=== PATIENT | male | born 1965 | race Caucasian/White ===

== ENCOUNTER 2019-05-04 16:33 | Observation (INO) ==
--- NOTE | 2019-05-04 17:58 | Emergency Department Note ---
Disposition Clinical Impression: Multiple sclerosis exacerbation Disposition: Admitted As Inpatient Condition: Fair Referrals: NONE,PCP [Primary Care Provider] - Forms: ED Satisfaction Letter, Work/School Release Time of Disposition: 20:23 General Adult HPI - General Chief complaint: ED General Medical Stated complaint: MS Flareup Time Seen by Provider: 05/04/19 17:06 Source: patient Limitations: no limitations - History of Present Illness HPI Narrative: Patient is a 53-year-old male complains of possible MS exacerbation. The patient is followed by Dr. Esposito here in the area. The patient states the past 3 or 4 days he has been extrinsic and some right-sided weakness, numbness. The patient states that he has had troubles with his balance as well. He does complain of some dizzy episodes as well. He denies any current headache, chest pain, palpitations, chest pain or abdominal pain. Patient states he has had some constipation issues. Patient states that his right side feels somewhat weak and less sensitive than his left. Patient denies any fevers or chills. The patient denies any rash. Patient states otherwise nothing makes symptoms better or worse. Pain Scale: 0 - Related Data Home Medications Medication Instructions Recorded Confirmed Albuterol Sulfate [Proair Hfa] 1 - 2 puff IH Q6H PRN 11/03/16 11/03/16 Allopurinol [Zyloprim] 300 mg PO DAILY 11/03/16 11/03/16 Aripiprazole [Abilify] 10 mg PO DAILY 11/03/16 11/03/16 Baclofen [Lioresal] 10 mg PO BID PRN 11/03/16 11/03/16 Cholecalciferol (Vitamin D3) 5,000 units PO DAILY 11/03/16 11/03/16 [Vitamin D3] DULoxetine [Cymbalta] 30 mg PO BID 11/03/16 11/03/16 Furosemide [Lasix] 40 mg PO BID PRN 11/03/16 11/03/16 Gabapentin [Neurontin] 600 mg PO TID 11/03/16 11/03/16 Glatiramer Acetate [Copaxone] 40 mg SQ QMWF 11/03/16 11/03/16 Indomethacin 75 mg PO DAILY 11/03/16 11/03/16 Levothyroxine [Synthroid] 50 mcg PO DAILY 11/03/16 11/03/16 Tramadol HCl [Ultram] 50 mg PO Q4-6H PRN 11/03/16 11/03/16 Previous Rx's Medication Instructions Recorded metFORMIN [Glucophage] 500 mg PO BIDWM #30 tablet 11/04/16 predniSONE [Prednisone] 10 mg PO TAPER #10 tab.ds.pk 11/04/16 Allergies Allergy/AdvReac Type Severity Reaction Status Date / Time Iodinated Contrast- Oral and Allergy Itching Verified 11/02/16 14:00 IV Dye [Iodinated Contrast Media - Oral and] Review of Systems: As mentioned per history of present illness and as follows. Constitutional: Negative for chills or fever HENT: Negative for sore throat. Eyes: Negative for visual disturbance Respiratory: Negative for shortness of breath. Cardiovascular: Negative for palpitations. Gastrointestinal: Negative for abdominal pain Genitourinary: Negative for dysuria Musculoskeletal: Negative for back pain. Skin: Negative for rash. Neurological: Positive for focal weakness Psychiatric/Behavioral: Negative for depression Past Medical History - Past Medical History Medical history: Reports: CHF, other Surgical history: Reports: herniorrhaphy (Umbilical hernia repair) Psychiatric history: Reports: no psych history - Social History Smoking Status: Never smoker Smokeless Tobacco Status: No Alcohol use: Reports: occasionally Drug use: Reports: none Physical Exam PHYSICAL EXAM Constitutional: Well developed, Well nourished, morbidly obese No acute distress, Non-toxic appearance. HENT: Normocephalic, Atraumatic, Bilateral external ears normal, Oropharynx moist, No oral exudates, Nose normal. Neck- Normal range of motion, No tenderness, Supple. Eyes: PERRL, EOMI, Conjunctiva normal,. Cardiovascular: Regular rate and rhythm without clicks, rubs, gallops or murmurs. Respiratory: Normal breath sounds, No respiratory distress, No wheezing, rhonchi, or crackles. GI: Soft, nontender, no evidence of guarding or peritoneal signs. Bowel sounds are active. Musculoskeletal: Good range of motion in all major joints. No tenderness to palpation or major deformities noted. Patient does have overall equal strength noted on examination may be slightly decrease of the right upper extremity compared to the left. Integument: Warm, Dry, No erythema, No rash. No edema. Dressing is in place a left lower extremity around the ankle. Neurologic: Alert & oriented x 3, patient is able to feel touch to the right and left-sided the face however somewhat diminished in the right, No focal deficits noted. Patient does appear to have a minimal right-sided facial droop on examination - General Limitations: no limitations General appearance: alert, in no apparent distress Course Vital Signs Temperature 98.3 F 05/04/19 16:39 Pulse Rate 93 05/04/19 16:39 Respiratory Rate 18 05/04/19 16:39 Blood Pressure 132/79 05/04/19 16:39 O2 Sat by Pulse Oximetry 92 05/04/19 16:39 Temperature 98.3 F 05/04/19 16:39 Pulse Rate 83 05/04/19 20:07 Respiratory Rate 18 05/04/19 20:07 Blood Pressure 142/68 05/04/19 20:07 O2 Sat by Pulse Oximetry 95 05/04/19 20:07 Oxygen Delivery Oxygen Delivery Room Air Medical Decision Making - MDM Narrative Medical decision making narrative: EKG was obtained that shows sinus rhythm at 86 beats a minute, no evidence of ST elevation or depression, VT and QT intervals are within normal limits. Interpreted by myself. Patient at this point in time did have a negative workup including negative CT, negative chest x-ray, unremarkable laboratory workup. The patient possibly could be having an MS exacerbation. Cannot entirely rule out a CVA however the symptoms are 3-4 days old, the patient is not a TPA candidate secondary to the length of time this is not ongoing. Patient did have a slight Medrol ordered here in the emergency room. The p atient. Case discussed with neurology as well. The patient is going to be admitted, case was discussed in full detail with the hospitalist and the patient will be admitted to the floor in stable condition. Patient appears to have MS exacerbation. Final impression 1. Multiple sclerosis exacerbation - Lab Data Result diagrams: 05/04/19 18:06 05/04/19 18:06 Lab Results 05/04/19 05/04/19 05/04/19 Range/Units 18:06 18:06 18:06 WBC 9.2 (4.3-11.1) K/mcL RBC 5.14 (4.19-5.50) M/mcL Hgb 14.3 (12.9-16.9) g/dL Hct 46.1 (37.5-50.1) % MCV 89.7 (83.0-100.0) fL MCH 27.8 L (28.0-33.3) pg MCHC 31.0 L (31.6-35.5) g/dL RDW 14.2 (11.5-14.5) % Plt Count 304 (140-400) K/mcL MPV 9.6 (9.4-12.4) fL Immature Gran % 0.5 (0-4) % Seg Neutrophils % 62.1 % Lymphocytes % 26.4 % Monocytes % 7.0 % Eosinophils % 3.2 % Basophils % 0.8 % Neutrophils # 5.7 (1.6-8.9) K/mcL Lymphocytes # 2.4 (0.6-4.6) K/mcL Monocytes # 0.6 (0.0-1.3) K/mcL Eosinophils # 0.3 (0.0-0.6) K/mcL Basophils # 0.1 (0.0-0.2) K/mcL PT 14.2 H (9.4-12.1) Seconds INR 1.3 Sodium 139 (136-145) mEq/L Potassium 4.1 (3.5-5.1) mEq/L Chloride 102 (98-107) mEq/L Carbon Dioxide 29 (23-29) mEq/L BUN 17 (6-20) mg/dL Creatinine 0.92 (0.70-1.30) mg/dL Est GFR ( Amer) > 60 (> 60) Est GFR (Non-Af Amer) > 60 (> 60) BUN/Creatinine Ratio 18 (6-26) Glucose 113 H (70-105) mg/dL POC Glucose (70-99) mg/dL Calculated Osmolality 290 (280-300) Calcium 9.1 (8.6-10.3) mg/dL Troponin I < 0.03 (< 0.04) ng/mL Urine Color (Yellow) Urine Clarity (Clear) Urine pH (5.0-8.0) pH Units Ur Specific [place] (1.010-1.025) Urine Protein (Neg-Trace) mg/dL Urine Glucose (UA) (Normal) mg/dL Urine Ketones (Negative) mg/dL Urine Blood (Negative) Urine Nitrite (Negative) Urine Bilirubin (Negative) Urine Urobilinogen (Normal) mg/dL Ur Leukocyte Esterase (Negative) 05/04/19 05/04/19 Range/Units 18:49 20:02 WBC (4.3-11.1) K/mcL RBC (4.19-5.50) M/mcL Hgb (12.9-16.9) g/dL Hct (37.5-50.1) % MCV (83.0-100.0) fL MCH (28.0-33.3) pg MCHC (31.6-35.5) g/dL RDW (11.5-14.5) % Plt Count (140-400) K/mcL MPV (9.4-12.4) fL Immature Gran % (0-4) % Seg Neutrophils % % Lymphocytes % % Monocytes % % Eosinophils % % Basophils % % Neutrophils # (1.6-8.9) K/mcL Lymphocytes # (0.6-4.6) K/mcL Monocytes # (0.0-1.3) K/mcL Eosinophils # (0.0-0.6) K/mcL Basophils # (0.0-0.2) K/mcL PT (9.4-12.1) Seconds INR Sodium (136-145) mEq/L Potassium (3.5-5.1) mEq/L Chloride (98-107) mEq/L Carbon Dioxide (23-29) mEq/L BUN (6-20) mg/dL Creatinine (0.70-1.30) mg/dL Est GFR ( Amer) (> 60) Est GFR (Non-Af Amer) (> 60) BUN/Creatinine Ratio (6-26) Glucose (70-105) mg/dL POC Glucose 94 (70-99) mg/dL Calculated Osmolality (280-300) Calcium (8.6-10.3) mg/dL Troponin I (< 0.04) ng/mL Urine Color Yellow (Yellow) Urine Clarity Clear (Clear) Urine pH 5.5 (5.0-8.0) pH Units Ur Specific [place] 1.019 (1.010-1.025) Urine Protein Negative (Neg-Trace) mg/dL Urine Glucose (UA) Normal (Normal) mg/dL Urine Ketones Trace H (Negative) mg/dL Urine Blood Negative (Negative) Urine Nitrite Negative (Negative) Urine Bilirubin Small H (Negative) Urine Urobilinogen Normal (Normal) mg/dL Ur Leukocyte Esterase Negative (Negative)
[2019-05-04 18:22] LABS: Basophils # 0.1 K/mcL (0.0-0.2); Basophils % 0.8 %; Eosinophils # 0.3 K/mcL (0.0-0.6); Eosinophils % 3.2 %; Hematocrit 46.1 % (37.5-50.1); Hemoglobin 14.3 g/dL (12.9-16.9); Immature Granulocytes % 0.5 % (0-4); Lymphocytes # 2.4 K/mcL (0.6-4.6); Lymphocytes % 26.4 %; Mean Corpuscular Hemoglobin 27.8 pg (28.0-33.3); Mean Corpuscular Volume 89.7 fL (83.0-100.0); Mean Platelet Volume 9.6 fL (9.4-12.4); Monocytes # 0.6 K/mcL (0.0-1.3); Neutrophils # 5.7 K/mcL (1.6-8.9); Platelet Count 304 K/mcL (140-400); Red Blood Count 5.14 M/mcL (4.19-5.50); Red Cell Distribution Width 14.2 % (11.5-14.5); Segmented Neutrophils % 62.1 %; White Blood Count 9.2 K/mcL (4.3-11.1)
[2019-05-04 18:25] LABS: INR 1.3; Prothrombin Time 14.2 Seconds (9.4-12.1)
[2019-05-04 18:40] LABS: BUN/Creatinine Ratio 18 (6-26); Blood Urea Nitrogen 17 mg/dL (6-20); Calcium 9.1 mg/dL (8.6-10.3); Carbon Dioxide 29 mEq/L (23-29); Chloride 102 mEq/L (98-107); Glucose 113 mg/dL (70-105); Osmolality,Calculated 290 (280-300); Potassium 4.1 mEq/L (3.5-5.1); Sodium 139 mEq/L (136-145); Troponin I < 0.03 ng/mL (< 0.04); eGFR For African Americans > 60 (> 60); eGFR For Non-African Americans > 60 (> 60)
[2019-05-04] MEDS ORDERED: methylPREDNISolone 125 MG/2 ML VIAL IVPB ONE (19:06)
[2019-05-04 20:07] LABS: Bilirubin,Urine Small (Negative); Blood,Urine Negative (Negative); Clarity,Urine Clear (Clear); Glucose,Urine (UA) Normal (Normal); Ketones,Urine Trace mg/dL (Negative); Leukocyte Esterase,Urine Negative (Negative); Nitrite,Urine Negative (Negative); PH,Urine 5.5 pH Units (5.0-8.0); Protein,Urine Negative (Neg-Trace); Specific Gravity,Urine 1.019 (1.010-1.025); Urobilinogen,Urine Normal (Normal)
[2019-05-04 20:11] LABS: Color,Urine Yellow (Yellow)
--- NOTE | 2019-05-04 23:10 | Internal Med History&Physical ---
Date of Encounter: 05/05/19 Time of Encounter: 05:36 Internal Medicine - H&P: HPI Chief complaint: Multiple sclerosis flare-up Admitted From: Emergency Dept Plans for Post Hospital Care: Home History of present illness: Mr. Rios is a 53 year old male Patient presented to the ER with right-sided weakness, similar to previous episode of MS flareup. His symptoms have been increasingly worsening over the last 4 days and is also noted a right-sided facial droop. He follows with neurology but has not seen in the neurologist in over a year. His last MS flareup was several years ago. In the emergency room patient's vital signs were within normal limits CBC within normal limits BMP within normal limits Initial troponin undetectable INR 1.3 Urinalysis negative for infection Head CT demonstrated no acute intracranial abnormality Chest x-ray showed no cardiopulmonary abnormality Emergency department discussed the case with on-call neurology. He was given IV steroids and admitted to the hospital for further monitoring. Neurology will consult in the morning. Upon my evaluation, patient is resting comfortably in the hospital bed in no acute distress. He is a very large man he weighs nearly 500 pounds. He denies chest pain, abdominal pain, vomiting, diarrhea. He has had some nausea and gets occasional constipation. He has his CPAP machine from home. He is feeling somewhat better, but still has some right-sided residual weakness and facial droop. He has a family history of diabetes. She is a full code. Past Med Surg Social Fam HX - Past Medical History Medical history: CHF, diabetes, thyroid disease, other Additional medical history: MS, gout Psychiatric history: anxiety, depression - Past Surgical History Surgical History: herniorrhaphy - Social History Smoking Status: Never smoker Smokeless Tobacco Status: No Alcohol use: occasionally Drug use: none - Family History Mother Hx Family Endocrine Disorder: Yes (Diabetes type II) Internal Medicine - H&P: Meds Albuterol Sulfate [Proair Hfa] 2 puff IH Q6H PRN 11/03/16 [History] Allopurinol [Zyloprim] 300 mg PO DAILY 11/03/16 [History] Baclofen [Lioresal] 10 mg PO HS 11/03/16 [History] Furosemide [Lasix] 40 mg PO BID 11/03/16 [History] Gabapentin [Neurontin] 600 mg PO BID 11/03/16 [History] Glatiramer Acetate [Copaxone] 40 mg SQ MOWEFR 11/03/16 [History] Levothyroxine [Synthroid] 50 mcg PO DAILY 11/03/16 [History] metFORMIN [Glucophage] 500 mg PO BIDWM #30 tablet 11/04/16 [Rx] Cholecalciferol (Vitamin D3) [Dialyvite Vitamin D] 5,000 unit PO DAILY 05/04/19 [History] Duloxetine HCl [Cymbalta] 60 mg PO DAILY 05/04/19 [History] Glimepiride [Amaryl] 2 mg PO DAILY 05/04/19 [History] Indomethacin 75 mg PO DAILY 05/04/19 [History] Allergy/AdvReac Type Severity Reaction Status Date / Time Iodinated Contrast- Oral and Allergy Itching Verified 11/02/16 14:00 IV Dye [Iodinated Contrast Media - Oral and] All Systems PM: A 10-system review of systems was performed and is negative for pertinent findings except as documented above in the HPI. - Constitutional Vitals: Temp Pulse Resp BP Pulse Ox 97.3 F L 95 16 115/72 95 05/04/19 22:35 05/04/19 22:35 05/04/19 22:35 05/04/19 22:35 05/04/19 22:35 General appearance: Present: cooperative, A&O X 3, pleasant, no acute distress, obese, answers questions appropriately Exam: - - Head Head exam: Present: normal inspection - Eye Eye exam: Present: EOMI, normal appearance - Respiratory Respiratory exam: Present: CTAB. Absent: rales, respiratory distress, rhonchi, wheezes - Cardiovascular Cardiovascular exam: Present: RRR. Absent: diastolic murmur, systolic murmur - GI/Abdominal GI/Abdominal exam: Present: normal bowel sounds, soft. Absent: tenderness - Extremities Exam Extremities exam: Present: pedal edema, radial pulses palpable and symmetrical. Absent: calf tenderness, tenderness Additional comments: Pitting edema in the lower extremities, left leg has dressing applied. Right leg has erythematous vascular changes. - Neurological Exam Neurological exam: Present: CN II-XII intact, motor sensory deficit, facial droop. Absent: no focal deficits, strengths equal and symetr throughout, speech deficit Additional comments: Right sided facial droop Right upper extremity weakness compared to left Right lower extremity weakness compared to left Left foot drop - Skin Skin exam: Present: dry, erythema, normal color, warm Additional comments: Erythematous lower extremities Internal Med - H&P Results - Labs CBC & Chem 7: 05/04/19 18:06 05/04/19 18:06 Labs: Short CBC 05/04/19 Range/Units 18:06 WBC 9.2 (4.3-11.1) K/mcL Hgb 14.3 (12.9-16.9) g/dL Hct 46.1 (37.5-50.1) % Plt Count 304 (140-400) K/mcL Neutrophils # 5.7 (1.6-8.9) K/mcL BMP 05/04/19 18:06 Sodium 139 Potassium 4.1 Chloride 102 Carbon Dioxide 29 BUN 17 Creatinine 0.92 Glucose 113 H Calcium 9.1 Cardiac Enzymes 05/04/19 Range/Units 18:06 Troponin I < 0.03 (< 0.04) ng/mL Urine 05/04/19 Range/Units 20:02 Urine Color Yellow (Yellow) Urine Clarity Clear (Clear) Urine pH 5.5 (5.0-8.0) pH Units Ur Specific [place] 1.019 (1.010-1.025) Urine Protein Negative (Neg-Trace) mg/dL Urine Glucose (UA) Normal (Normal) mg/dL - Impressions ITS Impressions Chest X-Ray 05/04/19 17:56 IMPRESSION: Stable portable study. D/ / Bernadine Todd Cha, MD / Bernadine Todd Cha, MD Interpreting Provider: Bernadine Todd Cha, MD Head CT 05/04/19 17:56 IMPRESSION: No acute intracranial abnormality. D/ / Bernadine Todd Cha, MD / Bernadine Todd Cha, MD Interpreting Provider: Bernadine Todd Cha, MD - Assessment and Plan (1) Multiple sclerosis exacerbation Current Visit: Yes Status: Acute Assessment and plan: Patient symptoms mildly improved after IV steroids. His symptoms are similar to his previous MS flare several years ago. Patient has not seen neurology in over a year. Neurology was consultative in the emergency room they will see the patient in the morning. Follow-up neurology consult Continue high-dose IV steroids daily PT OT consult (2) Diabetes mellitus Current Visit: No Status: Chronic Assessment and plan: Patient is not an insulin dependent diabetic Monitor sugars ACHS Diabetic diet Low dose insulin sliding scale as needed Hold home meds. Qualifiers: Diabetes mellitus type: type 2 Diabetes mellitus jail insulin use: without exterminator helper use Diabetes mellitus complication status: without complication Qualified Code(s): E11.9 - Type 2 diabetes mellitus without complications (3) Morbid obesity with BMI of 70 and over, adult Current Visit: No Status: Chronic Assessment and plan: Diabetic diet (4) Leg wound, left Current Visit: Yes Status: Acute Assessment and plan: Left lower extremity wound. Currently managed by wound care. Continue wound care. Qualifiers: Encounter type: subsequent encounter Qualified Code(s): S81.802D - Unspecified open wound, left lower leg, subsequent encounter (5) ROSARIO on CPAP Current Visit: No Status: Chronic Assessment and plan: Continue CPAP, patient utilizing home device. (6) DVT prophylaxis Current Visit: No Status: Acute Assessment and plan: Subcutaneous heparin - Time Spent With Patient Total time spent is greater than 50% in coordination of care (as documented) at patient's floor/unit and/or counseling patient: Greater than 35 minutes
[2019-05-05] MEDS ORDERED: Naloxone 0.4 MG/ML INJ IVP PRN (06:17)
[2019-05-05] MEDS ORDERED: Dextrose Gel 15 GM/37.5 ML TUBE PO PRN ×2 (06:24)
[2019-05-05] MEDS ORDERED: D5% in Water 1,000 ML IVC PRN (06:24)
[2019-05-05] MEDS ORDERED: *HR* Dextrose 50 % in Water (Syg) 50 ML SYRINGE IVP PRN (06:24)
[2019-05-05 08:14] LABS: Hematocrit 47.4 % (37.5-50.1); Hemoglobin 14.9 g/dL (12.9-16.9); Mean Corpuscular HGB Conc 31.4 g/dL (31.6-35.5); Mean Corpuscular Volume 88.9 fL (83.0-100.0); Mean Platelet Volume 9.8 fL (9.4-12.4); Platelet Count 282 K/mcL (140-400); Red Blood Count 5.33 M/mcL (4.19-5.50); Red Cell Distribution Width 14.2 % (11.5-14.5); White Blood Count 7.6 K/mcL (4.3-11.1)
[2019-05-05] MEDS: Insulin LISPRO 300 UNITS/3 ML VIAL SQ SCH ×4 (09:02→20:27)
[2019-05-05] MEDS: Furosemide 40 MG TABLET PO SCH ×2 (09:02→18:27)
[2019-05-05] MEDS: Gabapentin 300 MG CAPSULE PO SCH ×2 (09:03→21:31)
[2019-05-05] MEDS: Indomethacin 25 MG CAPSULE PO SCH (10:14)
--- NOTE | 2019-05-05 11:12 | Event Note ---
Date of Encounter: 05/05/19 Time of Encounter: 11:10 Mr Rios was placed in observation earlier today for acute exacerbation of multiple sclerosis. Mr Rios has had some improvement with first dose of IV Solumedrol last evening. He has a headache now. No fever or chills. Exam alert Comfortable Mucus membranes dry Heart reg and not tachy Agree with assessment and plan as per H&P Continue daily IV Solumedrol Neuro eval.
[2019-05-05] MEDS: *HR* Heparin 5,000 UNIT/ML VIAL SQ SCH ×2 (12:33→21:33)
[2019-05-05] MEDS ORDERED: Gadolinium Contrast Agent (WT Based) IV PRN (13:47)
[2019-05-05] MEDS ORDERED: Ketorolac 30 MG/ML VIAL IVP ONE (13:53)
--- NOTE | 2019-05-05 14:06 | Neurology - Consult Note ---
Date of Encounter: 05/05/19 Time of Encounter: 12:05 Assessment and Plan (1) Right sided weakness Current Visit: Yes Status: Acute This patient was an history of multiple sclerosis admitted with this numbness paresthesias and weakness of the right side With the concern off MS flareup, at the moment he seems to be stable he has improved after his first dose of IV steroids occasionally having some paresthesias but motor strength seems to be stable on current neurological examination Considering all it is possible that it could be a pseudo-exacerbation and may not be a true MS exacerbation And for that reason he would require MRI of the brain to see indeed if he has a new lesion or not Suggest MRI of the brain with and without contrast today If MRI is negative for any acute lesion he does not need to be on 3 day pulse of IV steroids But if MRI is positive he would need 3 days of IV steroids the GI prophylaxis And would also benefit from physical therapy evaluation Beside that he would continue on his other home medication including Copaxone as a scheduled We will follow the patient with you and particularly with the result of MRI scan (2) Multiple sclerosis Current Visit: Yes Status: Acute History of Present Illness HPI: Mr. Rios is a 53 year old male with history of MS admitted with right-sided weakness, similar to previous episode of MS flareup. His symptoms have been Urinalysis negative for infection Head CT demonstrated no acute intracranial abnormality Chest x-ray showed no cardiopulmonary abnormality He uses CPAP for Apnea. Patient has an history of multiple sclerosis for the past several years for which she is been on Copaxone and is been following up with Dr. Edwards in our group Overall he is been stable except occasionally he gets some numbness paresthesias but most recently he has noted some increasing weakness of the right side along with some paresthesias, he does acknowledges that he is been under a lot of stress recently perhaps could be playing a role in his symptoms Currently he seems to be stable Past Med Surg Social Fam HX - Past Medical History Medical history: CHF, diabetes, thyroid disease, other Additional medical history: MS, gout Psychiatric history: anxiety, depression - Past Surgical History Surgical History: herniorrhaphy - Social History Smoking Status: Never smoker Smokeless Tobacco Status: No Alcohol use: occasionally Drug use: none - Family History Mother Hx Family Endocrine Disorder: Yes (Diabetes type II) Medications and Allergies Albuterol Sulfate [Proair Hfa] 2 puff IH Q6H PRN 11/03/16 [History] Allopurinol [Zyloprim] 300 mg PO DAILY 11/03/16 [History] Baclofen [Lioresal] 10 mg PO HS 11/03/16 [History] Furosemide [Lasix] 40 mg PO BID 11/03/16 [History] Gabapentin [Neurontin] 600 mg PO BID 11/03/16 [History] Glatiramer Acetate [Copaxone] 40 mg SQ MOWEFR 11/03/16 [History] Levothyroxine [Synthroid] 50 mcg PO DAILY 11/03/16 [History] metFORMIN [Glucophage] 500 mg PO BIDWM #30 tablet 11/04/16 [Rx] Cholecalciferol (Vitamin D3) [Dialyvite Vitamin D] 5,000 unit PO DAILY 05/04/19 [History] Duloxetine HCl [Cymbalta] 60 mg PO DAILY 05/04/19 [History] Glimepiride [Amaryl] 2 mg PO DAILY 05/04/19 [History] Indomethacin 75 mg PO DAILY 05/04/19 [History] Allergy/AdvReac Type Severity Reaction Status Date / Time Iodinated Contrast- Oral and Allergy Itching Verified 11/02/16 14:00 IV Dye [Iodinated Contrast Media - Oral and] All Systems: The remainder of the systems were reviewed and are negative Physical Examination - Vital Signs Vital Signs: Initial Vital Signs Temp Pulse Resp BP Pulse Ox 98.3 F 93 18 132/79 92 05/04/19 16:39 05/04/19 16:39 05/04/19 16:39 05/04/19 16:39 05/04/19 16:39 - Exam Exam: GENERAL: Comfortable in no acute distress, morbidly obese male HEENT: Normal LUNGS: CTA HEART: RRR, S1 S2 Audible, no murmur EXTREMITIES: Significant pitting chronic Pedal edema bilaterally DETAILED NEUROLOGICAL EXAMINATION: MENTAL STATUS: Oriented to person, place, date and situation. Memory: knows the President, Aware of recent events Recent Memory Intact, Attention span is normal Cranial Nerve Examination: CN - II: Visual Acuity, Field of Vision Normal, Fundus examination: No disk edema, Pupils- size shape reaction to light and accommodation: All normal. CN III, IV, : External ocular movements were intact, Pupils were reactive, Nodrooping of the eyelids CN V: Sensation over the face to light touch and pinprick all normal. Corneal reflexes not tested, jaw jerk normal. CN VII: No facial asymmetry, no flattening of nasolabial folds, no difficulty in closing the eyes, no loss of forehead wrinkles, no difficulty in eye-closure, frowning raising eyebrows. CNVIII: No significant hearing loss CN IX, X: Uvula centralized not deviated, Gag reflex: Not tested CN X1: Sternocleidomastoid, trapezius, normal or evidence of any weakness. CN X11: No Dysarthria, no wasting or fibrilation f tongue muscles, no deviation, tongue muscle strength normal. Motor examination: No hypertrophy, tone was normal, power grade 0-5 Upper limbs Proximal- No difficulty in lifting the arms above the head. Distal- No weakness in distal muscles On formal testing 4/4 all over Lower limbs On formal testing 4/4 all over Coordination: [id number] normal. Target pursuit normal finger tapping normal, Rapid alternating moment of wrist normal Sensory system: Superficial sensations- Touch normal. Pain- Pinprick, Temperature all normal, Deep sensation normal, Joint position sense normal. Cortical sensation, Tactile discrimination, localization and extinction all normal. Deep tendon reflexes. Symmetrical bilateral, No evidence of Babinski. No sign of meningeal irritation Gait Examination: Deferred - Constitutional General appearance: comfortable Results - Laboratory Findings CBC and BMP: 05/05/19 08:04 05/04/19 18:06 Abnormal lab findings: Abnormal lab results MCH 27.8 pg (28.0-33.3) L 05/04/19 18:06 MCHC 31.4 g/dL (31.6-35.5) L 05/05/19 08:04 PT 14.2 Seconds (9.4-12.1) H 05/04/19 18:06 Glucose 113 mg/dL (70-105) H 05/04/19 18:06 POC Glucose 170 mg/dL (70-99) H 05/04/19 22:45 Trace mg/dL (Negative) H 05/04/19 20:02 Small (Negative) H 05/04/19 20:02 - Diagnostic Findings Additional findings: CT scan of the head was normal Consult Discharge Plan - Plan Referrals: NONE,PCP [Primary Care Provider] -
[2019-05-05] MEDS: Baclofen 10 MG TABLET PO SCH (21:29)
[2019-05-05] MEDS ORDERED: (Glatiramer Acetate [Copaxone] 40 MG) SQ SCH (21:46)
[2019-05-05] MEDS: Acetaminophen 325 MG TABLET PO PRN (22:11)
[2019-05-06 03:58] LABS: BUN/Creatinine Ratio 24 (6-26); Blood Urea Nitrogen 21 mg/dL (6-20); Calcium 9.2 mg/dL (8.6-10.3); Carbon Dioxide 24 mEq/L (23-29); Chloride 104 mEq/L (98-107); Glucose 249 mg/dL (70-105); Osmolality,Calculated 299 (280-300); Potassium 4.2 mEq/L (3.5-5.1); Sodium 139 mEq/L (136-145); eGFR For African Americans > 60 (> 60); eGFR For Non-African Americans > 60 (> 60)
[2019-05-06] MEDS: *HR* Heparin 5,000 UNIT/ML VIAL SQ SCH ×3 (05:40→21:51)
[2019-05-06] MEDS: Insulin LISPRO 300 UNITS/3 ML VIAL SQ SCH ×4 (07:42→20:32)
[2019-05-06] MEDS: Gabapentin 300 MG CAPSULE PO SCH ×2 (07:42→20:30)
[2019-05-06] MEDS: Furosemide 40 MG TABLET PO SCH ×2 (07:42→16:55)
[2019-05-06] MEDS: Indomethacin 25 MG CAPSULE PO SCH (07:43)
[2019-05-06] MEDS ORDERED: 0.9 % Sodium Chloride 1,000 ML IVC SCH (10:30)
--- NOTE | 2019-05-06 10:38 | Neurology Progress Note ---
Date of Encounter: 05/06/19 Time of Encounter: 10:35 Assessment and Plan (1) Right sided weakness Current Visit: Yes Status: Acute STABLE, improved (2) Multiple sclerosis Current Visit: Yes Status: Acute no new lesions, NO MS EXACERBATION SUGGEST START MEDROL DOSE PACK TODAY D/C IV STEROIDS FU WITH DR MELGAR IN 3/4 WEEKS OK TO DC FROM [facility] Subjective Interval history: MRI showed no new lesions , old changes, so NO EVIDENCE Of ACUTE EXACERBATION Objective - Constitutional Vitals: Temp Pulse Resp BP Pulse Ox 97.4 F L 90 18 120/75 94 05/06/19 07:23 05/06/19 07:23 05/06/19 07:23 05/06/19 07:23 05/06/19 07:45 Results - Laboratory Findings CBC and BMP: 05/05/19 08:04 05/06/19 01:29 Abnormal lab findings: Abnormal lab results MCH 27.8 pg (28.0-33.3) L 05/04/19 18:06 MCHC 31.4 g/dL (31.6-35.5) L 05/05/19 08:04 PT 14.2 Seconds (9.4-12.1) H 05/04/19 18:06 BUN 21 mg/dL (6-20) H 05/06/19 01:29 Glucose 249 mg/dL (70-105) H 05/06/19 01:29 POC Glucose 157 mg/dL (70-99) H 05/05/19 20:02 Trace mg/dL (Negative) H 05/04/19 20:02 Small (Negative) H 05/04/19 20:02 Consult Discharge Plan - Plan Referrals: NONE,PCP [Primary Care Provider] -
--- NOTE | 2019-05-06 15:24 | Internal Med Progress Note ---
Hospitalist Progress Note - Encounter Date of Encounter: 05/06/19 Time of Encounter: 11:15 - Subjective Interval History: Mr Rios is currently in observation for weakness and concern for MS exacerbation. He remains moderate risk at this time. Mr Rios is resting in bed. MRI negative. Still complains of feeling weak on R side. Fluids given today. No fever or chills. No CP or SOB. - Exam Vitals: Temp Pulse Resp BP Pulse Ox 97.4 F L 79 18 129/70 94 05/06/19 11:32 05/06/19 11:32 05/06/19 11:32 05/06/19 11:32 05/06/19 11:32 Exam: General: Alert and oriented. Comfortable at this time. Lying in bed. Skin: Normal color, no rash, H: Normocephalic. EENT: EOMI, Mucus membranes moist. Cardiovascular: Normal S1 & S2, no murmurs Pulse regular. Not tachycardic Lungs: Normal breath sounds, no wheezes or crackles. Abdomen: Soft, non-tender, Normal bowel sounds. Extremities: No deformity, no edema Neurological: Normal cognition Pulses: radial pulses normal +2. Rest of the physical exam is non contributory - Assessment and Plan (1) Multiple sclerosis exacerbation Current Visit: Yes Status: Acute Assessment and Plan: Pt is s/t IV Solumedrol. MRI does not show active lesions. Will d/c steroids. He still feels weak on R side. Reassess tomorrow. (2) ROSARIO on CPAP Current Visit: No Status: Chronic Assessment and Plan: Continue CPAP, patient utilizing home device. (3) DVT prophylaxis Current Visit: No Status: Acute Assessment and Plan: Subcutaneous heparin (4) Diabetes mellitus Current Visit: No Status: Chronic Assessment and Plan: Patient is not an insulin dependent diabetic Continue accuchecks and coverage. (5) Leg wound, left Current Visit: Yes Status: Acute Assessment and Plan: Left lower extremity wound. Currently managed by wound care. Continue wound care. (6) Morbid obesity with BMI of 70 and over, adult Current Visit: Yes Status: Chronic Assessment and Plan: Chronic issue. - Time Spent with Patient Total time spent is greater than 50% in coordination of care (as documented) at patient's floor/unit and/or counseling patient: Internal Medicine: Result - Labs CBC & Chem 7: 05/05/19 08:04 05/06/19 01:29 Labs: BMP 05/06/19 01:29 Sodium 139 Potassium 4.2 Chloride 104 Carbon Dioxide 24 BUN 21 H Creatinine 0.88 Glucose 249 H Calcium 9.2 - ABG Interpretation ABG results: PT/INR, D-dimer PT 14.2 Seconds (9.4-12.1) H 05/04/19 18:06 - Impressions Impressions Brain MRI 05/05/19 13:47 IMPRESSION: MR findings compatible with the history of MS. No imaging evidence of active demyelination at this time. D/ / Cristiano York MD / Cristiano York MD Interpreting Provider: Cristiano York MD Consult Discharge Plan - Plan Referrals: NONE,PCP [Primary Care Provider] - (4) Diabetes mellitus Qualifiers: Diabetes mellitus type: type 2 Diabetes mellitus extermination supervisor insulin use: without senior living use Diabetes mellitus complication status: without complication Qualified Code(s): E11.9 - Type 2 diabetes mellitus without complications (5) Leg wound, left Qualifiers: Encounter type: subsequent encounter Qualified Code(s): S81.802D - Unspecified open wound, left lower leg, subsequent encounter
[2019-05-06] MEDS: Acetaminophen 325 MG TABLET PO PRN (18:46)
[2019-05-06] MEDS: Baclofen 10 MG TABLET PO SCH (20:30)
[2019-05-07] MEDS: *HR* Heparin 5,000 UNIT/ML VIAL SQ SCH (05:42)
[2019-05-07 07:48] VITALS: BP 127/73
[2019-05-07] MEDS ORDERED: cephALEXin 250 MG CAPSULE PO ONE (08:26)
--- NOTE | 2019-05-07 08:29 | Discharge Summary ---
- NOTES TO OUTPATIENT PROVIDER Notes to Outpatient Provider: Pt presented with issues of R side weakness and concern for exacerbation of MS. Evaluated by neuro and MRI did not show new lesions. Received 2 doses of IV steroid. R leg noted to have some increased erythema. Will complete course of PO Keflex. Orders not resulted at time of discharge: Pending orders 05/04/19 17:56 ECG 12 lead ECG [ECG] Stat Date of Encounter: 05/07/19 Time of Encounter: 08:27 - Discharge Diagnosis (1) Multiple sclerosis exacerbation Priority: Primary Status: Acute (2) ROSARIO on CPAP Priority: Secondary Status: Chronic (3) Diabetes mellitus Priority: Secondary Status: Chronic Qualifiers: Diabetes mellitus type: type 2 Diabetes mellitus assisted insulin use: without terminal clerk use Diabetes mellitus complication status: without complication Qualified Code(s): E11.9 - Type 2 diabetes mellitus without complications (4) Leg wound, left Priority: Secondary Status: Acute Qualifiers: Encounter type: subsequent encounter Qualified Code(s): S81.802D - Unspecified open wound, left lower leg, subsequent encounter (5) Morbid obesity with BMI of 70 and over, adult Priority: Secondary Status: Chronic (6) Stasis dermatitis of both legs Priority: Secondary Status: Chronic Hospital course: Mr. Rios is a 53 year old male with hx of ROSARIO and MS presented to ED with complaints of worsening R side weakness. He was admitted due to concern for acu te exacerbation of MS> Mr Rios was admitted for probable exacerbation of MS. He was given high dose IV steroids. He was evaluated by Dr. Davidson and MRI done. No new MS lesions noted. He received total of 2 doses of Solumedrol 1000mg IV. He continued to have some unsteadiness and R side weakness. He was given a liter of NS with some improvement. His R leg was noted to be more erythematous than baseline so Keflex started. Today he is feeling better and approaching his baseline. He is afebrile. He feels ready for discharge home. Discharge discussed with: patient, nurse - Time Spent with Patient Total time spent providing and/or coordinating discharge services: 38min - Discharge Medications Prescriptions: New cephALEXin [Keflex] 500 mg PO BID #13 capsule Continued Baclofen [Lioresal] 10 mg PO HS Gabapentin [Neurontin] 600 mg PO BID Furosemide [Lasix] 40 mg PO BID Glatiramer Acetate [Copaxone] 40 mg SQ MOWEFR Allopurinol [Zyloprim] 300 mg PO DAILY Levothyroxine [Synthroid] 50 mcg PO DAILY Albuterol Sulfate [Proair Hfa] 2 puff IH Q6H PRN PRN Reason: Shortness Of Breath metFORMIN [Glucophage] 500 mg PO BIDWM #30 tablet Cholecalciferol (Vitamin D3) [Dialyvite Vitamin D] 5,000 unit PO DAILY Duloxetine HCl [Cymbalta] 60 mg PO DAILY Glimepiride [Amaryl] 2 mg PO DAILY Indomethacin 75 mg PO DAILY Home Medications: Albuterol Sulfate [Proair Hfa] 2 puff IH Q6H PRN 11/03/16 [History] Allopurinol [Zyloprim] 300 mg PO DAILY 11/03/16 [History] Baclofen [Lioresal] 10 mg PO HS 11/03/16 [History] Furosemide [Lasix] 40 mg PO BID 11/03/16 [History] Gabapentin [Neurontin] 600 mg PO BID 11/03/16 [History] Glatiramer Acetate [Copaxone] 40 mg SQ MOWEFR 11/03/16 [History] Levothyroxine [Synthroid] 50 mcg PO DAILY 11/03/16 [History] metFORMIN [Glucophage] 500 mg PO BIDWM #30 tablet 11/04/16 [Rx] Cholecalciferol (Vitamin D3) [Dialyvite Vitamin D] 5,000 unit PO DAILY 05/04/19 [History] Duloxetine HCl [Cymbalta] 60 mg PO DAILY 05/04/19 [History] Glimepiride [Amaryl] 2 mg PO DAILY 05/04/19 [History] Indomethacin 75 mg PO DAILY 05/04/19 [History] cephALEXin [Keflex] 500 mg PO BID #13 capsule 05/07/19 [Rx] Allergies/Adverse Reactions: Allergy/AdvReac Type Severity Reaction Status Date / Time Iodinated Contrast- Oral and Allergy Itching Verified 11/02/16 14:00 IV Dye [Iodinated Contrast Media - Oral and] Date of admission: 05/04/19 20:35 Primary care physician: PCP NONE Consults: 05/04/19 20:21 Consult to Neurology [CONS] Stat Consulting Provider: [facility] Reason for Consult: ms exab Call Completed: Yes 05/05/19 06:20 Consult to Occupational Therapy [CONS] Routine Comment: Evaluate, develop and implement POC Reason for Consult: MS flare, right sided upper and lower extremity weakness Does patient have active BEDREST order?: No Is patient medically & hemodynamically stable?: Yes Patient assessed for mobility or mobilized this visit?: No Consult to Physical Therapy [CONS] Routine Comment: Evaluate, develop and implement POC Reason for Consult: MS flare, upper and lower extremity weakness Does patient have active BEDREST order?: No Is patient medically & hemodynamically stable?: Yes Patient assessed for mobility or mobilized this visit?: No Discharging clinician: Bryan Gandhi Anticipated date of discharge: 05/07/19 - Constitutional Vitals: Temp Pulse Resp BP Pulse Ox 98.4 F 86 17 127/73 98 05/07/19 07:41 05/07/19 07:41 05/07/19 07:41 05/07/19 07:41 05/07/19 07:41 General appearance: Present: cooperative, A&O X 3, pleasant, obese, answers questions appropriately Exam: See below - Head Head exam: Present: normocephalic - Eye Eye exam: Present: EOMI, conjuntiva pink - ENT ENT exam: Present: mucous membranes moist - Neck Neck exam general surgery: Present: supple - Respiratory Respiratory exam: Present: decreased breath sounds, CTAB - Cardiovascular Cardiovascular exam: Present: RRR. Absent: systolic murmur, tachycardia - GI/Abdominal GI/Abdominal exam: Present: normal bowel sounds, soft - Extremities Exam Extremities exam: Present: warm Additional comments: Bilateral stasis dermatitis changes. R leg has more erythema than baseline for patient. Warm to touch. - Neurological Exam Neurological exam: Present: alert, oriented X3 - Skin Skin exam: Present: dry, warm Additional comments: See above. - Patient Status Disposition: Home, Self-Care Condition: Good Functional capacity at discharge: uses cane/walker Overall status at discharge: patient is progressing back to baseline - Ambulatory Orders Ambulatory Orders: Consult to Occupational Therapy [CONS] Time Frame: 1 Week, Facility: [facility], Location: Rehab Services Consult to Physical Therapy [CONS] Time Frame: 1 Week, Facility: [facility], Location: Rehab Services - Discharge Instructions Follow Up With: NONE,PCP [Primary Care Provider] - - Diet and Activity Activity: resume usual activities as tolerated Diet: advance to your usual diet
[2019-05-07] MEDS ORDERED: (Glatiramer Acetate [Copaxone] 40 MG) SQ SCH (09:00)
[2019-05-07] MEDS: Insulin LISPRO 300 UNITS/3 ML VIAL SQ SCH (09:52)
--- NOTE | 2019-05-08 09:46 | Electrocardiograph Report ---
[facility] Test Date: 2019-05-04 Pat Name: Magan Rios Department: [id number] Room: 3B63 Gender: M Bargeman: : 1965 Requested By: [id number] Order Number: [id number] Reading MD: Jd Cr Measurements Intervals [place] Rate: 86 P: 47 CT: 178 QRS: 68 QRSD: 106 T: 48 QT: 402 QTc: 481 Interpretive Statements Sinus rhythm Low voltage, extremity and precordial leads Borderline prolonged QT interval Baseline wander in lead(s) III aVL Electronically Signed On 05-08-2019 9:44:30 EDT by Jd Cr
== END 2019-05-07 10:46 | disposition home or self-care (01) ==
LOC: EMEROOARM 16:33 → 3BNU 16:33 → SUATTDRO 20:35 → 3BNU 21:33
PROVIDERS: ADMIT Pediatrics; ATTEND Internal Medicine

== ENCOUNTER 2019-09-14 10:46 | Inpatient (IN) ==
[2019-09-14] MEDS ORDERED: 0.9 % Sodium Chloride 1,000 ML IVC ONE (10:54)
[2019-09-14] MEDS ORDERED: Gadolinium Contrast Agent (WT Based) IV PRN (10:54)
[2019-09-14] MEDS ORDERED: *HR* HYDROcodone/Acet 5/325 mg TABLET PO PRN (15:30)
[2019-09-14] MEDS ORDERED: Naloxone 0.4 MG/ML INJ IVP PRN (15:30)
[2019-09-14] MEDS ORDERED: Ondansetron 4 MG/2 ML VIAL IVP PRN (15:30)
[2019-09-14] MEDS ORDERED: D5% in Water 1,000 ML IVC PRN (15:35)
[2019-09-14] MEDS ORDERED: *HR* Dextrose 50 % in Water (Syg) 50 ML SYRINGE IVP PRN (15:35)
[2019-09-14] MEDS ORDERED: Dextrose Gel 15 GM/37.5 ML TUBE PO PRN ×2 (15:35)
[2019-09-14] MEDS ORDERED: Baclofen 10 MG TABLET PO PRN (15:36)
[2019-09-14 15:50] LABS: Basophils % 0.3 %; Eosinophils # 0.1 K/mcL (0.0-0.6); Eosinophils % 0.6 %; Hematocrit 47.9 % (37.5-50.1); Hemoglobin 15.3 g/dL (12.9-16.9); Immature Granulocytes % 0.5 % (0-4); Lymphocytes # 0.8 K/mcL (0.6-4.6); Lymphocytes % 8.4 %; Mean Corpuscular HGB Conc 31.9 g/dL (31.6-35.5); Mean Corpuscular Volume 90.7 fL (83.0-100.0); Mean Platelet Volume 9.6 fL (9.4-12.4); Monocytes # 0.1 K/mcL (0.0-1.3); Monocytes % 1.3 %; Neutrophils # 8.5 K/mcL (1.6-8.9); Platelet Count 297 K/mcL (140-400); Red Blood Count 5.28 M/mcL (4.19-5.50); Red Cell Distribution Width 14.8 % (11.5-14.5); Segmented Neutrophils % 88.9 %; White Blood Count 9.6 K/mcL (4.3-11.1)
[2019-09-14 16:09] LABS: BUN/Creatinine Ratio 16 (6-26); Blood Urea Nitrogen 12 mg/dL (6-20); Carbon Dioxide 24 mEq/L (23-29); Chloride 107 mEq/L (98-107); Glucose 139 mg/dL (70-105); Osmolality,Calculated 290 (280-300); Potassium 3.8 mEq/L (3.5-5.1); Sodium 139 mEq/L (136-145); eGFR For African Americans > 60 (> 60); eGFR For Non-African Americans > 60 (> 60)
[2019-09-14 16:59] LABS: Bilirubin,Urine Negative (Negative); Blood,Urine Negative (Negative); Clarity,Urine Clear (Clear); Color,Urine Yellow (Yellow); Glucose,Urine (UA) Normal (Normal); Ketones,Urine Negative (Negative); Leukocyte Esterase,Urine Negative (Negative); Nitrite,Urine Negative (Negative); PH,Urine 7.5 pH Units (5.0-8.0); Protein,Urine Negative (Neg-Trace); Specific Gravity,Urine 1.017 (1.010-1.025); Urobilinogen,Urine Normal (Normal)
[2019-09-14] MEDS: *HR* Heparin 5,000 UNIT/ML VIAL SQ SCH (17:43)
[2019-09-14] MEDS: Insulin LISPRO 300 UNITS/3 ML VIAL SQ SCH (17:43)
[2019-09-14] MEDS ORDERED: GLATIRAMER 40 MG SQ SCH (18:30)
[2019-09-14] MEDS: Gabapentin 300 MG CAPSULE PO SCH (21:21)
[2019-09-14] MEDS: Magnesium Oxide 400 MG TABLET PO SCH (21:21)
[2019-09-14] MEDS: Insulin DETEMIR 100 UNIT/ML X5UNITS SQ SCH (22:39)
[2019-09-15 01:52] LABS: Basophils % 0.1 %; Hematocrit 43.7 % (37.5-50.1); Immature Granulocytes % 0.6 % (0-4); Lymphocytes # 0.8 K/mcL (0.6-4.6); Lymphocytes % 8.6 %; Mean Corpuscular HGB Conc 31.1 g/dL (31.6-35.5); Mean Corpuscular Hemoglobin 28.6 pg (28.0-33.3); Mean Platelet Volume 10.4 fL (9.4-12.4); Monocytes % 0.4 %; Neutrophils # 8.6 K/mcL (1.6-8.9); Platelet Count 297 K/mcL (140-400); Red Blood Count 4.75 M/mcL (4.19-5.50); Red Cell Distribution Width 14.4 % (11.5-14.5); Segmented Neutrophils % 90.3 %; White Blood Count 9.5 K/mcL (4.3-11.1)
[2019-09-15 01:57] LABS: Chol/HDL Ratio 4.7 (0-4.9); Magnesium 1.9 mg/dL (1.6-2.6); Phosphorous 2.2 mg/dL (2.7-4.5)
[2019-09-15 02:00] LABS: Hemoglobin 13.6 g/dL (12.9-16.9)
[2019-09-15] MEDS: *HR* Heparin 5,000 UNIT/ML VIAL SQ SCH ×2 (05:35→18:13)
[2019-09-15] MEDS: Magnesium Oxide 400 MG TABLET PO SCH ×2 (08:22→20:20)
[2019-09-15] MEDS: Furosemide 40 MG TABLET PO SCH (08:22)
[2019-09-15] MEDS: Pantoprazole 40 MG VIAL IVP SCH (08:22)
[2019-09-15] MEDS: Insulin LISPRO 300 UNITS/3 ML VIAL SQ SCH ×3 (08:22→18:13)
[2019-09-15] MEDS: Gabapentin 300 MG CAPSULE PO SCH ×2 (08:22→20:19)
[2019-09-15] MEDS ORDERED: Cholecalciferol (D-3) 1,000 UNIT (25MCG) TABLET PO SCH (09:00)
[2019-09-15] MEDS ORDERED: Gadolinium Contrast Agent (WT Based) IV PRN (14:15)
[2019-09-15] MEDS: Insulin DETEMIR 100 UNIT/ML X5UNITS SQ SCH (20:20)
[2019-09-16] MEDS: *HR* Heparin 5,000 UNIT/ML VIAL SQ SCH (05:11)
[2019-09-16] MEDS: Insulin LISPRO 300 UNITS/3 ML VIAL SQ SCH ×2 (08:11→12:46)
[2019-09-16] MEDS: Furosemide 40 MG TABLET PO SCH (08:11)
[2019-09-16] MEDS: Magnesium Oxide 400 MG TABLET PO SCH (08:11)
[2019-09-16] MEDS: Pantoprazole 40 MG VIAL IVP SCH (08:11)
[2019-09-16] MEDS: Gabapentin 300 MG CAPSULE PO SCH (08:12)
[2019-09-16] MEDS ORDERED: Cholecalciferol (D-3) 1,000 UNIT (25MCG) TABLET PO SCH (09:00)
[2019-09-16 15:41] VITALS: BP 124/76
== END 2019-09-16 16:04 | disposition home health service (06) | DRG 59 ==
LOC: 3BNU 10:46 → EMEROOARM 10:46 → SUATTDRO 16:14 → 3BNU 16:50
PROVIDERS: ADMIT Student in an Organized Health Care Education/Training Program; ATTEND Internal Medicine

== ENCOUNTER 2022-07-03 09:51 | Inpatient (IN) ==
[2022-07-03] MEDS ORDERED: *HR* OxyCODONE Immed Rel 5 MG TABLET PO PRN (13:23)
[2022-07-03] MEDS ORDERED: Naloxone 0.4 MG/ML INJ IVP PRN ×2 (13:23→16:41)
[2022-07-03] MEDS ORDERED: Ondansetron 4 MG/2 ML VIAL IVP PRN (13:23)
[2022-07-03] MEDS ORDERED: *HR* HYDROcodone/Acet 5/325 mg TABLET PO PRN (13:23)
[2022-07-03] MEDS ORDERED: Acetaminophen 325 MG TABLET PO PRN (13:23)
[2022-07-03] MEDS ORDERED: D5% in Water 1,000 ML IVC PRN (13:30)
[2022-07-03] MEDS ORDERED: Dextrose Gel 15 GM/37.5 ML TUBE PO PRN ×2 (13:30)
[2022-07-03] MEDS ORDERED: *HR* Dextrose 50 % in Water (Syg) 50 ML SYRINGE IVP PRN (13:30)
[2022-07-03] MEDS ORDERED: Insulin LISPRO 300 UNITS/3 ML VIAL SUBQ SCH ×3 (16:30→21:00)
[2022-07-03] MEDS ORDERED: Insulin DETEMIR 100 UNIT/ML X5UNITS SUBQ ONE (17:17)
[2022-07-03] MEDS ORDERED: Patient Taking Own Medication 1 EACH PO ONE (17:28)
[2022-07-03] MEDS: *HR* Enoxaparin 40 MG/0.4 ML SYRINGE SQ SCH (21:00)
[2022-07-03] MEDS: Insulin LISPRO 300 UNITS/3 ML VIAL SUBQ SCH (21:00)
[2022-07-03] MEDS: Gabapentin 300 MG CAPSULE PO SCH (21:01)
[2022-07-03] MEDS: methylPREDNISolone 1,000 MG in 0.9 % Sodium Chloride 50 ML IVPB SCH (21:17)
[2022-07-03] MEDS: Insulin DETEMIR 100 UNIT/ML X5UNITS SUBQ SCH (21:18)
[2022-07-04] MEDS: Insulin LISPRO 300 UNITS/3 ML VIAL SUBQ SCH ×6 (00:16→20:07)
[2022-07-04 03:43] LABS: White Blood Count 15.1 K/mcL (4.3-11.1)
[2022-07-04 03:44] LABS: Basophils % 0.1 %; Hematocrit 43.5 % (37.5-50.1); Hemoglobin 13.8 g/dL (12.9-16.9); Immature Granulocytes % 0.9 % (0-4); Lymphocytes # 1.2 K/mcL (0.6-4.6); Lymphocytes % 8.2 %; Mean Corpuscular HGB Conc 31.7 g/dL (31.6-35.5); Mean Corpuscular Hemoglobin 28.4 pg (28.0-33.3); Mean Corpuscular Volume 89.5 fL (83.0-100.0); Mean Platelet Volume 9.9 fL (9.4-12.4); Monocytes # 0.4 K/mcL (0.0-1.3); Monocytes % 2.4 %; Neutrophils # 13.4 K/mcL (1.6-8.9); Platelet Count 279 K/mcL (140-400); Red Blood Count 4.86 M/mcL (4.19-5.50); Red Cell Distribution Width 14.3 % (11.5-14.5); Segmented Neutrophils % 88.4 %
[2022-07-04 04:02] LABS: BUN/Creatinine Ratio 31 (6-26); Blood Urea Nitrogen 28 mg/dL (6-20); Calcium 8.5 mg/dL (8.6-10.3); Carbon Dioxide 26 mEq/L (23-29); Chloride 103 mEq/L (98-107); Glucose 282 mg/dL (70-105); Magnesium 2.2 mg/dL (1.6-2.6); Osmolality,Calculated 300 (280-300); Potassium 4.2 mEq/L (3.5-5.1); Sodium 137 mEq/L (136-145)
[2022-07-04] MEDS ORDERED: Simethicone 80 MG TAB.CHEW PO ONE (06:07)
[2022-07-04] MEDS ORDERED: Simethicone 40 MG/0.6 ML MLS PO ONE (06:15)
[2022-07-04] MEDS: *HR* Enoxaparin 40 MG/0.4 ML SYRINGE SQ SCH ×2 (08:48→20:06)
[2022-07-04] MEDS: Insulin DETEMIR 100 UNIT/ML X5UNITS SUBQ SCH ×2 (08:48→20:07)
[2022-07-04] MEDS: Pantoprazole 40 MG VIAL IVP SCH (08:49)
[2022-07-04] MEDS: Cholecalciferol (D-3) 1,000 UNIT (25MCG) TABLET PO SCH (08:49)
[2022-07-04] MEDS: allopurinoL 300 MG TABLET PO SCH (08:49)
[2022-07-04] MEDS: Furosemide 40 MG TABLET PO SCH (08:49)
[2022-07-04] MEDS: Gabapentin 300 MG CAPSULE PO SCH ×2 (08:49→20:08)
[2022-07-04] MEDS ORDERED: methylPREDNISolone 1,000 MG in 0.9 % Sodium Chloride 50 ML IVPB SCH (09:00)
[2022-07-04] MEDS ORDERED: Insulin DETEMIR 100 UNIT/ML X5UNITS SUBQ SCH (09:00)
[2022-07-04] MEDS ORDERED: Gadolinium Contrast Agent (WT Based) IV PRN (09:57)
[2022-07-04] MEDS: methylPREDNISolone 1,000 MG in 0.9 % Sodium Chloride 50 ML IVPB SCH (20:54)
[2022-07-05] MEDS: Insulin LISPRO 300 UNITS/3 ML VIAL SUBQ SCH ×6 (00:03→21:11)
[2022-07-05 05:37] LABS: Basophils % 0.1 %; Hemoglobin 13.7 g/dL (12.9-16.9); Immature Granulocytes % 0.9 % (0-4); Lymphocytes % 7.9 %; Mean Corpuscular HGB Conc 31.9 g/dL (31.6-35.5); Mean Corpuscular Hemoglobin 28.5 pg (28.0-33.3); Mean Corpuscular Volume 89.6 fL (83.0-100.0); Monocytes # 0.2 K/mcL (0.0-1.3); Monocytes % 1.6 %; Neutrophils # 11.6 K/mcL (1.6-8.9); Platelet Count 252 K/mcL (140-400); Red Cell Distribution Width 14.3 % (11.5-14.5); Segmented Neutrophils % 89.5 %
[2022-07-05 06:02] LABS: BUN/Creatinine Ratio 31 (6-26); Blood Urea Nitrogen 29 mg/dL (6-20); Calcium 8.4 mg/dL (8.6-10.3); Carbon Dioxide 26 mEq/L (23-29); Chloride 102 mEq/L (98-107); Glucose 299 mg/dL (70-105); Osmolality,Calculated 295 (280-300); Potassium 4.1 mEq/L (3.5-5.1); Sodium 134 mEq/L (136-145)
[2022-07-05] MEDS: Cholecalciferol (D-3) 1,000 UNIT (25MCG) TABLET PO SCH (08:13)
[2022-07-05] MEDS: allopurinoL 300 MG TABLET PO SCH (08:13)
[2022-07-05] MEDS: Multivit/Ca/Min/Fe/FA 1 TAB TABLET PO SCH (08:14)
[2022-07-05] MEDS: Furosemide 40 MG TABLET PO SCH (08:14)
[2022-07-05] MEDS: Glatiramer Acetate [Copaxone] 40 MG/ML Syringe SUBQ SCH (08:14)
[2022-07-05] MEDS: Ascorbic Acid 500 MG TABLET PO SCH (08:14)
[2022-07-05] MEDS: Gabapentin 300 MG CAPSULE PO SCH ×2 (08:14→21:13)
[2022-07-05] MEDS: *HR* Enoxaparin 40 MG/0.4 ML SYRINGE SQ SCH ×2 (08:15→21:11)
[2022-07-05] MEDS: Pantoprazole 40 MG VIAL IVP SCH (08:15)
[2022-07-05] MEDS: Indomethacin 25 MG CAPSULE PO SCH ×3 (08:25→21:13)
[2022-07-05] MEDS: Insulin DETEMIR 100 UNIT/ML X5UNITS SUBQ SCH ×2 (08:25→21:11)
[2022-07-05] MEDS: methylPREDNISolone 1,000 MG in 0.9 % Sodium Chloride 50 ML IVPB SCH (21:13)
[2022-07-05] MEDS: Baclofen 10 MG TABLET PO PRN (21:15)
[2022-07-06] MEDS: Insulin LISPRO 300 UNITS/3 ML VIAL SUBQ SCH ×6 (00:03→20:34)
[2022-07-06 03:39] LABS: Basophils % 0.2 %; Eosinophils % 0.1 %; Hematocrit 42.9 % (37.5-50.1); Hemoglobin 13.9 g/dL (12.9-16.9); Lymphocytes # 0.9 K/mcL (0.6-4.6); Lymphocytes % 7.2 %; Mean Corpuscular HGB Conc 32.4 g/dL (31.6-35.5); Mean Corpuscular Hemoglobin 28.8 pg (28.0-33.3); Mean Platelet Volume 9.8 fL (9.4-12.4); Monocytes # 0.3 K/mcL (0.0-1.3); Monocytes % 2.6 %; Neutrophils # 11.3 K/mcL (1.6-8.9); Platelet Count 235 K/mcL (140-400); Red Blood Count 4.82 M/mcL (4.19-5.50); Red Cell Distribution Width 14.3 % (11.5-14.5); Segmented Neutrophils % 88.9 %; White Blood Count 12.7 K/mcL (4.3-11.1)
[2022-07-06 04:02] LABS: BUN/Creatinine Ratio 35 (6-26); Blood Urea Nitrogen 29 mg/dL (6-20); Carbon Dioxide 24 mEq/L (23-29); Chloride 103 mEq/L (98-107); Glucose 284 mg/dL (70-105); Osmolality,Calculated 298 (280-300); Potassium 3.8 mEq/L (3.5-5.1); Sodium 136 mEq/L (136-145)
[2022-07-06] MEDS: Gabapentin 300 MG CAPSULE PO SCH ×2 (08:27→21:38)
[2022-07-06] MEDS: Cholecalciferol (D-3) 1,000 UNIT (25MCG) TABLET PO SCH (08:27)
[2022-07-06] MEDS: Ascorbic Acid 500 MG TABLET PO SCH (08:27)
[2022-07-06] MEDS: Furosemide 40 MG TABLET PO SCH (08:27)
[2022-07-06] MEDS: Multivit/Ca/Min/Fe/FA 1 TAB TABLET PO SCH (08:28)
[2022-07-06] MEDS: *HR* Enoxaparin 40 MG/0.4 ML SYRINGE SQ SCH ×2 (08:28→20:33)
[2022-07-06] MEDS: predniSONE 20 MG TABLET PO SCH (08:28)
[2022-07-06] MEDS: allopurinoL 300 MG TABLET PO SCH (08:28)
[2022-07-06] MEDS: Pantoprazole 40 MG VIAL IVP SCH (08:28)
[2022-07-06] MEDS: Indomethacin 25 MG CAPSULE PO SCH ×3 (08:28→20:33)
[2022-07-06] MEDS: Insulin DETEMIR 100 UNIT/ML X5UNITS SUBQ SCH ×2 (08:30→20:33)
[2022-07-06] MEDS ORDERED: Indomethacin 25 MG CAPSULE PO ONE (20:32)
[2022-07-06] MEDS ORDERED: Simethicone 80 MG TAB.CHEW PO PRN (21:06)
[2022-07-06] MEDS: Baclofen 10 MG TABLET PO PRN (21:40)
[2022-07-07] MEDS: Insulin LISPRO 300 UNITS/3 ML VIAL SUBQ SCH ×4 (00:39→11:55)
[2022-07-07 07:44] VITALS: TEMP 98.4
[2022-07-07] MEDS: Gabapentin 300 MG CAPSULE PO SCH (08:29)
[2022-07-07] MEDS: allopurinoL 300 MG TABLET PO SCH (08:29)
[2022-07-07] MEDS: Indomethacin 25 MG CAPSULE PO SCH (08:29)
[2022-07-07] MEDS: Furosemide 40 MG TABLET PO SCH (08:29)
[2022-07-07] MEDS: Ascorbic Acid 500 MG TABLET PO SCH (08:30)
[2022-07-07] MEDS: Cholecalciferol (D-3) 1,000 UNIT (25MCG) TABLET PO SCH (08:30)
[2022-07-07] MEDS: *HR* Enoxaparin 40 MG/0.4 ML SYRINGE SQ SCH (08:30)
[2022-07-07] MEDS: Pantoprazole 40 MG VIAL IVP SCH (08:30)
[2022-07-07] MEDS: predniSONE 20 MG TABLET PO SCH (08:30)
[2022-07-07] MEDS: Multivit/Ca/Min/Fe/FA 1 TAB TABLET PO SCH (08:30)
[2022-07-07] MEDS: Glatiramer Acetate [Copaxone] 40 MG/ML Syringe SUBQ SCH (08:31)
[2022-07-07] MEDS: Insulin DETEMIR 100 UNIT/ML X5UNITS SUBQ SCH (08:32)
[2022-07-07 12:34] VITALS: BP 127/77; PULSE 86; O2SAT 94
[2022-07-07 13:20] LABS: Adenovirus Not Detected (Not Detect); Bordetella Pertussis Not Detected (Not Detect); Chlamydophila pneumoniae Not Detected (Not Detect); Coronavirus 229E Not Detected (Not Detect); Coronavirus HKU1 Not Detected (Not Detect); Coronavirus NL63 Not Detected (Not Detect); Coronavirus OC43 Not Detected (Not Detect); Human Metapneumovirus Not Detected (Not Detect); Human Rhinovirus/Enterovirus Not Detected (Not Detect); Influenza A Subtype 2009 H1 Not Detected (Not Detect); Influenza B Not Detected (Not Detect); Mycoplasma pneumoniae Not Detected (Not Detect); Parainfluenza Virus 1 Not Detected (Not Detect); Parainfluenza Virus 2 Not Detected (Not Detect); Parainfluenza Virus 3 Not Detected (Not Detect); Parainfluenza Virus 4 Not Detected (Not Detect); Respiratory Syncytial Virus Not Detected (Not Detect); SARS-CoV-2 Not Detected (Not Detect)
== END 2022-07-07 15:45 | disposition other institution (70) | DRG 59 ==
LOC: INTOOBSV 12:16 → 3NENU 12:16 → SUATTDRO 12:16
PROVIDERS: ADMIT Pharmacist; ATTEND Hospitalist